=== PATIENT | female | born 1940 | race Caucasian/White ===

== ENCOUNTER 2023-09-20 06:09 | Day surgery (SDC) | payer MEDICARE, BC ==
[2023-09-20] MEDS ORDERED: Marcaine Mpf 0.5% Vial 30 Ml ONE (06:26)
[2023-09-20] MEDS ORDERED: Xylocaine 1% Vial 30 ML PF IJ ONE (06:26)
[2023-09-20] MEDS: CEFAZOLIN 2 GM-D5W BAG** 2 GM/50 ML ML IV SCH (06:30)
[2023-09-20] MEDS: Lactated Ringers 1,000 ML IV SCH (06:31)
[2023-09-20 06:38] LABS: Hematocrit 34.8 % (35-47); Hemoglobin 11.2 g/dL (12.0-16.0); Mean Cell Volume 90.9 fL (78-100); Mean Corpuscular Hemoglobin 29.2 pg (26-32); Mean Corpuscular Hgb Concent. 32.2 g/dL (32-36); Platelet Count 309 x10^3/uL (150-450); Red Blood Count 3.83 x10^6/uL (4.1-5.4); Red Cell Distribution Width 12.7 % (11.5-14.0); White Blood Count 8.2 x10^3/uL (4.0-10.5)
[2023-09-20 06:56] LABS: ALBUMIN 4.2 g/dL (3.5-5.0); ANION GAP 13.4 MEQ/L (5-15); BILIRUBIN,TOTAL 0.5 mg/dL (0.2-1.3); Calcium 9.4 mg/dL (8.4-10.2); Creatinine 1 0.69 mg/dL (0.52-1.04); EST GLOMERULAR FILTRATION RATE 86.1 ML/MIN; Potassium 3.5 mmol/L (3.5-5.1); Total Protein 7.6 g/dL (6.3-8.2)
[2023-09-20] MEDS ORDERED: DIPRIVAN 200 MG/20 ML IV ONE (07:21)
[2023-09-20] MEDS ORDERED: SUBLIMAZE 100 MCG/2 ML ONE (07:21)
[2023-09-20] MEDS ORDERED: Xylocaine-Mpf 2% 5 Ml Vial ONE (07:21)
[2023-09-20] MEDS ORDERED: Versed 2 MG/2 ML Injection ONE (07:21)
[2023-09-20 08:49] VITALS: RESP 16
[2023-09-20 09:27] VITALS: BP 138/58; PULSE 56; TEMP 98.7; O2SAT 95
--- NOTE | 2023-09-24 11:36 | OP ---
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 2) Pain left foot. 3) Previous history of squamous cell carcinoma. 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 2) Pain left foot. 3) Previous history of squamous cell carcinoma. PROCEDURE: Excision of soft tissue likely squamous cell left foot. SURGEON: Tristan James DPM. SHEET MET[employer] DUCT INSTALLER HELPER: None. ANESTHESIA: Monitored anesthesia care with intraoperative local block consisting of 20 cc of 1:1 mixture of 1% lidocaine plain injected in V block-type fashion to the left lower extremity. HEMOSTASIS: Pressure dressing. ESTIMATED BLOOD LOSS: Approximately 5 cc. MATERIALS: 2-0 Nylon, 3-0 Nylon, 4-0 Monocryl and 1 set of Suturegard. INJECTABLES: 20 cc of 1:1 mixture of 1% lidocaine plain and 0.5% bupivacaine plain. INDICATION FOR SURGERY: Estefania is a very pleasant 83-year-old female who presented to my service with concerns of a painful lesion to the lateral aspect of her left foot. This lesion has been known to weep and crust. The patient has had this lesion for approximately several months and shoe gear does not explain the pain that she has been having. She indicates that she has had similar lesions removed in the past that have turned out to be squamous cell carcinoma. As a result and given the patient's clinical history, my clinical suspicion is relatively high and the threshold for biopsy is low in these situations. The patient is willing to proceed if this does eliminate some of the pain that she is experiencing as well as give us some understanding of what this lesion could potentially be. In my clinical experience, this does not appear to be something benign given the irregular borders, pain, weeping and crusting and asymmetrical appearance as well as size bigger than 8 mm in length. As a result, the patient understands this lesion will likely have to be excised with bigger than a punch biopsy in order to eliminate the possibility of invasiveness as well as eliminate the pain due to its surface area. As a result, the patient understands we will plan to do a 3:1 ellipse which makes the incision at minimum 3 cm long in order to excise this lesion and will likely need assistance in closure with Suturegard. The patient understands all these risks and wishes to proceed with surgical intervention. At this time all risks, complications and benefits were discussed with the patient including but not limited to infection, hematoma, seroma, possibility of delayed wound healing, nonwound healing and possible need for surgical intervention at a later date. No guarantees were provided as to the outcome of surgical intervention. Plenty of time was allowed for the patient to ask questions to their satisfaction. It is at this time we decided to proceed. DESCRIPTION OF PROCEDURE AND FINDINGS: The patient is brought into the OR and placed on the OR table in the supine position. At this time monitored anesthesia care was administered until the patient was sedated. The left lower extremity was prepped and draped in the typical sterile fashion and lowered onto the surgical field. At this time, attention was directed to the lateral aspect of the left foot where the lesion was circled measuring approximately 8 mm in length and width. From that standpoint, a 3:1 ellipse was drawn for surgical site planning. A 20 cc injection was utilized in a V block-type fashion to block the left lower extremity and once took place, a complete excision of the lesion took place leaving approximately 3 cm lesion footprint this was handed off the field and sent for pathology. At this time, copious amounts of sterile saline were utilized to flush the surgical site. A Bovie was utilized to cauterize any bleeders and then 4-0 Monocryl was utilized to coapt the subcutaneous edges of the skin. 2-0 Nylon and Suturegard were utilized to relieve tension off of the edges of the surgical site and then 3-0 Nylon was utilized in a simple interrupted-type fashion to coapt the skin edges in a simple interrupted-type fashion. Following this, a dressing consisting of Betadine, Adaptic, 4x4, Kerlix and SHREYA was applied to the patient's left lower extremity. The patient was reversed from anesthesia and returned to the postoperative anesthesia care unit with vital signs stable and vascular status intact. The patient handled the anesthesia as well as the procedure without significant complication. Postoperative orders as indicated in the patient's discharge chart.
== END 2023-09-20 09:45 | disposition home or self-care (01) ==
LOC: SDC 06:09
PROVIDERS: ATTEND Podiatrist Foot & Ankle Surgery
DX: C44.729 Squamous cell carcinoma of skin of left lower limb, including hip (principal); M79.672 Pain in left foot; Z85.828 Personal history of other malignant neoplasm of skin; Z09 Encounter for follow-up examination after completed treatment for conditions other than malignant neoplasm
CPT/HCPCS: 11603; 36415; 80053; 85027; 93005; 99100; J0690; J2001; J2250; J2704; J3010